=== PATIENT | female | born 1950 ===

== ENCOUNTER 2016-08-12 07:36 | Day surgery (SDC) | payer BC ==
[~2016-08-12 07:36] MED LIST: Buffered Lidocaine 1% SYRIN* 5 ML/SYR SYRINGE INTRADERM ONE; Buffered Lidocaine 1% SYRIN* 5 ML/SYR SYRINGE ONE; Dexamethasone IV* 4 MG/ML 1 ML (4 MG) IV SLOW PU ONE; Dexamethasone IV* 4 MG/ML 1 ML (4 MG) ONE; Famotidine IV* 10 MG/ML 2 ML (20 mg) IV ONE; Famotidine IV* 10 MG/ML 2 ML (20 mg) ONE; ceFAZolin 1 GM in Dextrose (*) 1 GM/50 ML BAG IVPB ONE; ceFAZolin 2 GM PREMIX(*) 2 GM/50 ML BAG IVPB ONE
[2016-08-12] MEDS ORDERED: HYDROmorphone* 1 MG/ML 1 ML SYR ONE ×3 (08:07→10:13)
[2016-08-12] MEDS ORDERED: Midazolam* 1 MG/ML 5 ML VIAL (5 MG) ONE (08:08)
[2016-08-12] MEDS ORDERED: fentaNYL* 50 MCG/ML 2 ML VIAL (100 MCG VIAL) ONE ×3 (08:08→10:46)
[2016-08-12] MEDS ORDERED: Propofol* 10 MG/ML 20 ML BTL IV PUSH ONE (08:09)
[2016-08-12] MEDS ORDERED: Ondansetron INJ* 2 MG/ML VIAL ONE (08:09)
[2016-08-12] MEDS ORDERED: Ketorolac INJ* 30 MG/ML 1 ML VIAL ONE (08:09)
[2016-08-12] MEDS ORDERED: Lidocaine 2% PF * 5 ML VIAL ONE (08:09)
[2016-08-12] MEDS ORDERED: Meperidine SYRINGE* 50 MG/ML ONE (09:22)
[2016-08-12] MEDS ORDERED: Bupivacaine 0.5% SDV PF* 30 ML VIAL ONE (10:03)
[2016-08-12] MEDS ORDERED: fentaNYL* 50 MCG/ML 2 ML VIAL (100 MCG VIAL) IV PRN (10:27)
[2016-08-12] MEDS ORDERED: PROCHLORPERAZINE INJ 5 MG/ML 2 ML VIAL IV PRN (10:27)
[2016-08-12] MEDS ORDERED: HYDROmorphone* 1 MG/ML 1 ML SYR IV PRN (10:27)
[2016-08-12] MEDS ORDERED: Ondansetron INJ* 2 MG/ML VIAL IV PRN (10:27)
[2016-08-12] MEDS ORDERED: DiMENhydriNATE IV* 50 MG/ML VIAL IV PUSH PRN (10:27)
[2016-08-12] MEDS ORDERED: oxyCODONE TAB* 5 MG TAB ONE (12:12)
[2016-08-12 12:53] VITALS: BP 131/76
--- NOTE | 2016-08-12 22:43 | RAD ---
CPT II Codes: 6045F INDICATION: Chronic right foot pain TECHNIQUE: Intraoperative fluoroscopy was provided during plate and screw fusion of the right great toe metatarsal phalangeal joint.. FINDINGS: A single spot film depicts a plate and screw fixator and screw spanning the right metatarsal phalangeal joint. Fluoroscopy time: 5.1 seconds IMPRESSION: As above.
--- NOTE | 2016-08-13 11:40 | OP ---
OPERATIVE REPORT: DATE OF OPERATION: 08/12/16 - SDS DATE OF : 52 SURGEON: Vicente Cueva MD. RESOURCE ENGINEER: Modesta Modi PA-C. ANESTHESIOLOGIST: Dr. Adrian Villeda. ANESTHESIA: General. PRE-OP DIAGNOSIS: Right hallux valgus with degenerative changes. POST-OP DIAGNOSIS: Right hallux valgus with degenerative changes. OPERATIVE PROCEDURE: Right first MTP joint fusion. DESCRIPTION OF PROCEDURE: The patient was taken to the operating room where an ankle Esmarch was raised. We made a longitudinal incision over the dorsal aspect of the first MTP joint. Medial and lateral flaps were raised and we used a small power bur to remove the cartilage from the MTP joint. There was arthritic changes noted throughout the joint. We then corrected the valgus position, pinning this obliquely with a 30 mm partially threaded 4.0 cannulated screw and then fixed an F3 plate over the dorsum. This was a rigid Y plate. X- ray intraoperatively showed satisfactory position of the hardware. We closed medial and lateral capsule with 3- 0 Vicryl and 4-0 nylon and a compression dressing applied. [id number]/[facility] #: [id number] MTDD
== END 2016-08-12 12:58 | disposition home or self-care (01) ==
LOC: OR 07:36
PROVIDERS: ATTEND Orthopaedic Surgery
DX: M20.11 Hallux valgus (acquired), right foot (principal); E66.01 Morbid (severe) obesity due to excess calories; Z68.43 Body mass index [BMI] 50.0-59.9, adult; I10 Essential (primary) hypertension; E03.9 Hypothyroidism, unspecified; Z86.718 Personal history of other venous thrombosis and embolism
CPT/HCPCS: 76000; A9270-GY; C1713; C1776; J0690; J1100; J1170; J1885; J2250; J2405; J2704; J3010

== ENCOUNTER 2018-08-28 09:31 | Day surgery (SDC) | payer BC ==
--- NOTE | 2018-08-14 20:18 | HP ---
CC: Dr. Carrillo; Dr.Reilly Walker.* ADMISSION HISTORY AND PHYSICAL: DATE OF ADMISSION: 08/28/18 ATTENDING SURGEON: Dr. Heather Perez* (TOMMY Hewitt dictating). CHIEF COMPLAINT: Hyperparathyroidism. HISTORY OF PRESENT ILLNESS: This is a 67-year-old female who was first noted to have elevated serum calcium in December, by her primary care provider . She was not having anything in the way of acute symptoms at that time, though does admit to some fatigue and sluggishness. She specifically does not have a history of nephrolithiasis, osteoporosis, or abdominal pain. She did undergo a workup with Dr. Walker Lab work from 07/15/18 confirmed a low vitamin D level at 17.7 and intact PTH of 141 (upper limit of normal 65), calcium of 11. A prior thyroid ultrasound from 09/05/[address] Perez 's note showed bilateral heterogeneity of both thyroid lobes without nodules. There was noted to be inferior to the left lobe, a nodule measuring 17 x 10 x 12 mm possibly consistent with parathyroid gland versus a lymph node. The patient was seen in the office by Dr. Perez on 07/22/18. In the office, ultrasound was performed as well. Dr. Perez felt that parathyroidectomy was indicated and has described to the patient the risks, benefits and expected perioperative course. A SPECT CT scan of the neck is scheduled for 08/20/18 to confirm localization of a presumed parathyroid adenoma. The patient is in agreement to proceed with surgery as scheduled for parathyroidectomy. PAST MEDICAL HISTORY: Hypertension, morbid obesity, hypothyroidism (autoimmune thyroiditis), hyperlipidemia, vitamin D and vitamin B12 deficiencies, degenerative joint disease primarily of her knees and hip. PAST SURGICAL HISTORY: Previous surgeries include tonsillectomy, remotely; appendectomy, remotely; TAHBSO for cervical cancer in 1970s; sinus surgery; left knee arthroscopy and fusion with internal fixation of the right MTP joint in 2017. No reported surgical or anesthesia complication. ALLERGIES: LISINOPRIL (the patient does not recall reaction) LEVAQUIN (the patient believes that she had stomach upset), LIPITOR (muscle cramping). CURRENT MEDICATIONS: 1. Simvastatin 20 mg once daily. 2. Metoprolol tartrate 25 mg b.i.d. 3. Amlodipine 10 mg once daily. 4. Levothyroxine 200 mcg once daily. 5. Citalopram 20 mg once daily. 6. Tylenol p.r.n. (does not use daily). 7. She takes vitamin D and vitamin B12 supplements. FAMILY HISTORY: Negative for anesthesia problems, bleeding or clotting disorders, and also negative for endocrine malignancies. SOCIAL HISTORY: The patient lives alone. She is . 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 She denies tobacco use, drinks alcohol infrequently and denies any other recreational drug use. REVIEW OF SYSTEMS: General: No recent constitutional symptoms or acute illnesses other than described in the HPI. HEENT: No problems reported. Cardiovascular: No chest pain, palpitations, history of ND or angina or heart murmur. History of hypertension. Respiratory: No history of asthma, chronic cough or shortness of breath. GI: No problems reported. Colonoscopy done in 2013, we recommended a 3- year followup. She is encouraged to discuss this with her primary care provider, though she has not had any interval symptoms or concern. : No problems reported. She states her last breast exam and mammogram were approximately 5 years ago. She is likewise encouraged to set these up Dr. Carrillo. She reports no interval problems. She no longer has pelvic exams or PAP smears done as she is status post hysterectomy. Endocrine: No diabetes. She is treated for hypothyroidism secondary to autoimmune thyroiditis. PHYSICAL EXAMINATION GENERAL: A well-nourished, morbidly obese female in no acute distress. VITAL SIGNS: Height 5 feet 4 inches, weight 340 pounds (BMI of 37.5), blood pressure 128/84, pulse 78, respirations 18, temperature 98.2. HEENT: Pupils equal, round and reactive. EOMs intact. No conjunctival pallor. Oropharynx, teeth in good repair. No intraoral lesions. NECK: No lymphadenopathy, thyromegaly, or masses. HEART: Regular rate and rhythm. No murmur noted. LUNGS: Clear to auscultation. No rales or wheezes. BREAST: Not examined. ABDOMEN: Soft, nontender to palpation. No palpable masses or organomegaly. GENITALIA: Not done. RECTAL: Not done. BACK: No spinous process tenderness. EXTREMITIES: No edema. NEUROLOGICAL: Grossly intact. SKIN: Warm and dry. No suspicious rashes or lesions. IMPRESSION: Hyperparathyroidism. PLAN: Parathyroidectomy. TOMMY HEWITT [id number]/[facility] #: [id number] MTDD
[~2018-08-28 09:31] MED LIST changes: +Buffered Lidocaine 1% SYRIN* 1 ML/SYRINGE INTRADERM ONE; -Buffered Lidocaine 1% SYRIN* 5 ML/SYR SYRINGE INTRADERM ONE; -Buffered Lidocaine 1% SYRIN* 5 ML/SYR SYRINGE ONE; -Dexamethasone IV* 4 MG/ML 1 ML (4 MG) IV SLOW PU ONE; -Dexamethasone IV* 4 MG/ML 1 ML (4 MG) ONE; -Famotidine IV* 10 MG/ML 2 ML (20 mg) IV ONE; -Famotidine IV* 10 MG/ML 2 ML (20 mg) ONE; +Lactated Ringers 1000 ML Bag* 1,000 ML IV SCH; -ceFAZolin 1 GM in Dextrose (*) 1 GM/50 ML BAG IVPB ONE; -ceFAZolin 2 GM PREMIX(*) 2 GM/50 ML BAG IVPB ONE
[2018-08-28] MEDS ORDERED: Lidocaine 1% INJ* 10 MG/ML 30 ML SDV ONE (11:57)
[2018-08-28] MEDS ORDERED: Bupivacaine 0.25% SDV PF* 10 ML VIAL INJ ONE (11:57)
[2018-08-28] MEDS ORDERED: Propofol* 10 MG/ML 20 ML BTL ONE ×2 (12:10→13:34)
[2018-08-28] MEDS ORDERED: Succinylcholine* 20 MG/ML 10 ML VIAL ONE (12:10)
[2018-08-28] MEDS ORDERED: fentaNYL* 50 MCG/ML 2 ML VIAL (100 MCG VIAL) ONE (12:11)
[2018-08-28] MEDS ORDERED: Midazolam* 1 MG/ML 2 ML VIAL (2 MG) ONE (12:11)
[2018-08-28] MEDS ORDERED: Dexamethasone IV* 4 MG/ML 1 ML (4 MG) ONE (13:06)
[2018-08-28] MEDS ORDERED: oxyCODONE/Acetamin 5/325 MG* TAB PO PRN (14:00)
[2018-08-28] MEDS ORDERED: fentaNYL* 50 MCG/ML 2 ML VIAL (100 MCG VIAL) IV PRN (14:00)
[2018-08-28] MEDS ORDERED: Naloxone* 0.4 MG/ML 1 ML VIAL IV PRN (14:00)
[2018-08-28] MEDS ORDERED: Ondansetron INJ* 2 MG/ML VIAL IV PRN (14:00)
--- NOTE | 2018-08-28 15:59 | OP ---
CC: Dr. Carrillo; Dr. Slick Walker OPERATIVE REPORT: DATE OF OPERATION: 08/28/18 DATE OF : 52 SERVICE: General Surgery. PRIMARY CARE PHYSICIAN: Dr. Carrillo. PAWN SHOP KEEPER: Dr. Slick Walker. ATTENDING SURGEON: Heather Perez MD PUTTY WORKER: Danielle Oneill MD ANESTHESIOLOGIST: Ruy Benavidez MD. ANESTHESIA: General endotracheal anesthesia. PRE-OP DIAGNOSIS: Primary hyperparathyroidism. POST-OP DIAGNOSIS: Primary hyperparathyroidism. OPERATIVE PROCEDURE: Focused left upper parathyroidectomy. SPECIMENS: Left upper parathyroid adenoma. ESTIMATED BLOOD LOSS: Minimal, less than 10 cc. INTRAOPERATIVE FINDINGS: A very enlarged descended left upper parathyroid adenoma, left lower parathyroid adenoma was also examined and was normal in appearance. INDICATION FOR SURGERY: Ms. Contreras is a very pleasant 67-year-old female with a history of morbid obesity, hypothyroidism, hypertension, primary hyperparathyroidism with very elevated calcium levels. She obtained a localization study that showed a left sided enlarged parathyroid gland on ultrasound that correlated with a Sestamibi scan. She therefore gave informed consent for a parathyroidectomy. She understood the risks, benefits, and alternatives of the procedure and she wished to proceed. DESCRIPTION OF PROCEDURE: The patient was brought back to the operating room and placed on the operating table in the supine position. Sequential compression devices were placed on the bilateral lower extremities for DVT prophylaxis. No antibiotics were administered. General endotracheal anesthesia was induced. The electrodes from the nerve monitor were attached. Given the patient's obesity, there was some difficulty with tucking her arms; however, this was done and all pressure points were padded. A baseline PTH value had been drawn in the preop holding area. Prior to administrating local anesthesia, a time-out was performed verifying the patient's name, MR number, and the procedure to be performed. 0.25% Marcaine with 1% lidocaine was infiltrated subcutaneously at the anterior neck and then the neck was prepped and draped in normal sterile fashion after placing the neck in extended position. After this, a second time-out was performed, verifying the patient's name, MR number, and the procedure to be performed. At approximately 4 cm incision was made in the midline of the neck approximately 2 fingerbreadths above the sternal notch in a previously marked natural skin crease. The skin was divided down to the subcutaneous tissue. The platysma was divided and the inferior and superior subplatysmal flaps were developed superiorly towards the thyroid cartilage and inferiorly towards the clavicle. Once this was done, the median raphe between the strap muscles was identified and divided. The strap muscles were then retracted laterally on the left side given again that the preoperative localization studies indicated that there was a very large left- sided adenoma present. The strap muscles were retracted off of the thyroid and then the middle thyroid vein was identified and divided. In the left lower thyroid region, a normal appearing lower parathyroid was identified anteriorly at the inferior thyroid lobe. However, this appeared to be normal and was inconsistent with the size that was seen on the ultrasound studies. The thyroid was rotated medially up out of the neck and at this point it was very clear that there was a more posterior, descended left upper parathyroid gland that was extremely enlarged. It was dissected out of its surrounding fascia until its vascular pedicle was isolated. Once the pedicle was divided with Ligasure, the remaining PTH levels were obtained at T0, T5, and T10. The baseline resulted at 246.8, T0 was 29.7, T5 was 25.4, and T10 with 23. Of note , the T0, T5, and T10 were obtained slightly later then when the vascular pedicle was actually divided, given that there was some difficulty obtaining the labs from the peripheral IV. Given that the [place] criterion was met, the procedure was determined to be concluded. Hemostasis was obtained in the left lateral neck. Tisseel was placed into the lateral neck. Once this was done, the strap muscles were reapproximated using interrupted 4-0 Vicryl sutures. The platysma was reapproximated using interrupted 4-0 Vicryl sutures and the skin was closed using a running 4-0 Prolene suture. Sterile dressing was then placed. The patient's anesthesia was reversed and she was taken to PACU in stable condition. At the end of the case, all counts were correct and I was present during the entirety of the case. Of note, the left upper parathyroid adenoma was also opened and it was approximately 1.5 cm in diameter and was clearly a parathyroid gland. [id number]/[facility] #: [id number] [facility]
[2018-08-28 16:58] VITALS: BP 140/89
== END 2018-08-28 19:00 | disposition home or self-care (01) ==
LOC: OR 09:31
PROVIDERS: ATTEND Surgery
DX: E21.0 Primary hyperparathyroidism (principal); D35.1 Benign neoplasm of parathyroid gland; E03.9 Hypothyroidism, unspecified; I10 Essential (primary) hypertension; E66.01 Morbid (severe) obesity due to excess calories; Z68.43 Body mass index [BMI] 50.0-59.9, adult
CPT/HCPCS: 36415; 83970; 88305; C1776; J0330; J1100; J2250; J2704; J3010; J3490